=== PATIENT | female | born 1945 | race Caucasian/White ===

== ENCOUNTER 2022-07-20 10:51 | Outpatient (REF) | payer MEDICARE, SELFPAY | END 2022-07-20 10:52 | disposition home or self-care (01) | LOC: HO.LAB 10:51 | PROVIDERS: PCP Internal Medicine; Visit Provider Internal Medicine | DX: Z13.89 Encounter for screening for other disorder (principal) ==

== ENCOUNTER 2022-08-31 13:38 | Outpatient (REF) | payer MEDICARE, SELFPAY ==
[2022-08-31 15:12] LABS: Cholesterol 246 mg/dL; HDL Cholesterol 81 mg/dL; LDL Cholesterol Calculated 146 mg/dl; Triglycerides 96 mg/dL
[2022-08-31 15:23] LABS: Thyroid Stimulating Hormone 0.98 uIU/mL (0.32-4.0)
== END 2022-08-31 13:39 | disposition home or self-care (01) ==
LOC: HO.LAB 13:38
PROVIDERS: PCP Internal Medicine; Visit Provider Internal Medicine
DX: E78.00 Pure hypercholesterolemia, unspecified (principal); E03.8 Other specified hypothyroidism
CPT/HCPCS: 36415; 80061; 84443

== ENCOUNTER 2023-02-20 16:45 | Outpatient (REF) | payer MEDICARE, SELFPAY ==
--- NOTE | ~2023-02-20 | XR_ITS ---
EXAMINATION: XR ribs RT min 3V w CXR1V CLINICAL INFORMATION: Reason for Exam S/P FALL, PAIN, R/O FRACTURE COMPARISON: None TECHNIQUE: 3 views of the Right ribs. 1 view of the chest. FINDINGS: No displaced rib fracture however osteopenia limits assessment. Clear lungs. Small bilateral pleural effusions. No pleural effusion. Normal cardiomediastinal silhouette. XR/XR ribs RT min 3V w CXR1V IMPRESSION: No displaced rib fracture however osteopenia limits assessment. Please note that rib radiographs have low sensitivity for detection of rib fractures and if continued clinical concern CT chest is advised. Small bilateral pleural effusions.
== END 2023-02-20 16:46 | disposition home or self-care (01) ==
LOC: HO.XRAY 16:45
PROVIDERS: PCP Internal Medicine; Visit Provider Internal Medicine
DX: R07.81 Pleurodynia (principal); Z91.81 History of falling
CPT/HCPCS: 71101

== ENCOUNTER 2023-04-05 10:55 | Outpatient (REF) | payer MEDICARE, SELFPAY ==
--- NOTE | ~2023-04-05 | XR_ITS ---
EXAMINATION: XR ANKLE, RIGHT CLINICAL INFORMATION: Pain and swelling right ankle. Lateral pain. COMPARISON: None available. TECHNIQUE: AP, lateral, and mortise views of the right ankle. FINDINGS: The bones are diffusely demineralized. Soft tissue swelling at the ankle. Ankle joint effusion. Tiny plantar calcaneal spur. Possible ossific fragments along the medial malleolus partially obscured by overlying structures and of indeterminate age. Possible tiny avulsion fracture fragment versus hypertrophic change along the inferior aspect of the lateral malleolus. XR/XR ankle RT min 3V IMPRESSION: Possible ossific fragments along the medial malleolus partially obscured by overlying structures and of indeterminate age. Possible tiny avulsion fracture fragment versus hypertrophic change along the inferior aspect of the lateral malleolus. Correlation with clinical exam recommended to determine further management. Recommend follow-up imaging in 10-14 days if fracture is suspected. Additional imaging with CT scan or MRI should be considered for better visualization as these modalities are much more sensitive for detection of fracture or other underlying pathology. This study was presented today 04/09/2023 at 10:37 AM for interpretation. [facility] staff will provide results to referring provider at this time.
== END 2023-04-05 10:56 | disposition home or self-care (01) ==
LOC: HO.XRAY 10:55
PROVIDERS: PCP Internal Medicine; Visit Provider Internal Medicine
DX: R60.0 Localized edema (principal); M25.571 Pain in right ankle and joints of right foot
CPT/HCPCS: 73610

== ENCOUNTER 2024-02-12 10:44 | Outpatient (REF) | payer MEDICARE, SELFPAY ==
[2024-02-12 12:29] LABS: Appearance Urine Clear; Color Urine Dark Yellow; Glucose Urine UA Negative (Negative); Leukocyte Esterase Urine Small (1+) (Negative); Nitrite Urine Negative (Negative); Specific Gravity - Urine 1.015 (1.005-1.025); UMIC TRIGGER UA YES; Urine Blood Negative (Negative); Urine Ketones Trace mg/dL (Negative); Urine Protein Negative (Neg-Trace)
[2024-02-12 12:44] LABS: Vitamin B12 1178 pg/mL (200-900)
[2024-02-12 12:53] LABS: Bacteria Urine 1+ (None Seen); Hyaline Casts Urine 0-2 /LPF (0-2); RBC Urine 0-2 /HPF (0-2); Squamous Epithelial Cell Urine 0-2 /HPF (0-2); WBC Urine 0-5 /HPF (0-5)
[2024-02-18 06:14] LABS: Vitamin B1 33 nmol/L (8-30)
[2024-02-20 06:19] LABS: Vitamin B6 82.9 ng/mL (2.1-21.7)
== END 2024-02-12 10:45 | disposition home or self-care (01) ==
LOC: HO.LAB 10:44
PROVIDERS: PCP Internal Medicine; Visit Provider Internal Medicine
DX: Z00.00 Encounter for general adult medical examination without abnormal findings (principal); E78.00 Pure hypercholesterolemia, unspecified; G20.A1 Parkinson's disease without dyskinesia, without mention of fluctuations; I10 Essential (primary) hypertension; D64.9 Anemia, unspecified; N30.00 Acute cystitis without hematuria; R30.0 Dysuria; R35.0 Frequency of micturition; R68.83 Chills (without fever); Z13.31 Encounter for screening for depression
CPT/HCPCS: 36415; 81001; 82607; 84207; 84425; 84443; 87086; 87088; 87186